=== PATIENT | female | born 1985 | race Caucasian/White ===

== ENCOUNTER 2023-05-19 19:06 | Emergency (ER) | payer OTHER, MEDICAID, SELFPAY ==
[2023-05-19 19:08] VITALS: BP 138/97; PULSE 78; RESP 16; TEMP 36.4; O2SAT 100; BMI 33.6
[2023-05-19 19:26] VITALS: BP 142/86; PULSE 73; RESP 16; O2SAT 98
[2023-05-19] MEDS: ONDANSETRON 4 MG ODT PREPACK 1 BOTTLE MISC (19:36)
--- NOTE | 2023-05-20 02:13 | ED.FALL ---
HPI - Fall General Chief Complaint: Fall Stated Complaint: Head inj from fall Time Seen by Provider: 05/19/23 19:18 Source: patient Mode of arrival: Ambulatory History of Present Illness HPI Narrative: 38-year-old female nonsmoker presents for evaluation of injury suffered as a consequence of a ground level fall just prior to arrival. She was playing with her son and tripped and fell forward striking the left side of her forehead just above her left eye. She denies any loss of consciousness and has full recall of the event. She is had no nausea or vomiting and denies any blurred vision. She denies any neck or back pain. She does not take blood thinners. She denies any chest pain or shortness of breath and has no extremity injury. She is developed the decent size hematoma above her left eye and has been icing it since. She denies blurred or double vision. Related Data Home Medications Medication Instructions Recorded Confirmed dextroamphetamine-amphetamine ER 1 cap PO DAILY 05/19/23 05/19/23 10 mg 24hr capsule,extend release (Adderall XR) fluoxetine 20 mg capsule 20 mg PO DAILY 05/19/23 05/19/23 Allergies Allergy/AdvReac Type Severity Reaction Status Date / Time No Known Drug Allergies Allergy Verified 05/19/23 19:35 Review of Systems Review of Systems Narrative: GENERAL: Denies chills, fatigue, malaise, fever, sweats. HEENT: see HPI RESPIRATORY: Denies dyspnea, cough, wheezing, hemoptysis, sputum. CARDIOVASCULAR: Denies chest pain, palpitations, orthopnea, edema, GASTROINTESTINAL: Denies nausea, vomiting, abdominal pain, diarrhea, constipation, melena. : Denies dysuria, frequency, incontinence, hematuria, urinary retention. MUSCULOSKELETAL: denies weakness, joint pain, or bony pain SKIN: Denies rash, skin lesions, or other NEUROLOGIC: Denies weakness, headache, numbness, change in speech, confusion, seizures, incoordination. PSYCHIATRIC: No concerning psychosocial issues. 12 point review of systems is negative except for those stated above Patient History Social History Smoking Status: Never smoker Smoking Status: Never smoker Substance Use Type: does not use Exam Narrative Exam Narrative: GENERAL: [38] year old patient appears stated age. Well-developed patient, in mild distress. GCS 15 HEAD: Hematoma noted above left eye with associated left upper lid swelling and some minimal involvement of lower lid. No evidence of depressed skull fracture. When hematoma is pressed to the side with finger the underlying bone is none tender EYES: Pupils equal round and reactive. Extraocular motions intact. No scleral icterus. No injection or drainage. No hyphema. Normal fundoscopic exam. ENT: Nose without bleeding, purulent drainage. Throat without erythema, tonsillar hypertrophy or exudate. Airway patent. NECK: Trachea midline. Non tender CARDIOVASCULAR: Regular rate and rhythm without murmurs, gallops, or rubs. RESPIRATORY: Clear to auscultation. Breath sounds equal bilaterally. No wheezes, rales, or rhonchi. GASTROINTESTINAL: Abdomen soft, non-tender, nondistended. EXTREMITIES: No edema or joint tenderness. BACK: Nontender without deformity or crepitance. No flank tenderness. NEURO: AOx3. SKIN: No rash or erythema of visible areas Initial Vital Signs Initial Vital Signs: Vital Signs Temperature 97.5 F L 05/19/23 19:08 Pulse Rate 78 05/19/23 19:08 Respiratory Rate 16 05/19/23 19:08 Blood Pressure 138/97 H 05/19/23 19:08 Pulse Oximetry 100 05/19/23 19:08 Oxygen Delivery Method Room Air 05/19/23 19:08 Course Orders Ordered: Discontinued Medications Ondansetron HCl (Ondansetron 4 Mg Odt Prepack) 1 bottle MIS SEEINSTR ONE Stop: 05/19/23 19:28 Last Admin: 05/19/23 19:36 Dose: 1 bottle Documented By: MALA Vital Signs Vital signs: Vital Signs - 8 hr 05/19/23 19:08 05/19/23 19:26 Temperature 97.5 F L Pulse Rate 78 73 Respiratory Rate 16 16 Blood Pressure 138/97 H 142/86 H Pulse Oximetry 100 98 Oxygen Delivery Method Room Air Room Air MDM - Fall MDM Narrative Medical decision making narrative: [38] year old patient presents with head injury after GLF Multiple etiologies for patient's symptoms considered including, but not limited to: [hematoma vs. orbital fracture vs. concussion vs. other] Prior Charts reviewed in our EMR Primary Historian: patient Patient's history and physical exam are reassuring. She has no vision change, no double vision, no abnormality with extraocular muscles. She has a normal GCS, does not take blood thinners, no indication for head CT. We did discuss the potential of facial bones or orbital bone imaging. She does have an impressive hematoma but there is low suspicion for underlying fracture. We did discuss that given her lack of vision change, normal extraocular muscle evaluation that if there were fracture it is likely clinically insignificant. After this discussion we elect not to perform imaging. She is appropriate for discharge with reassurance and given return precautions Findings and discharge diagnosis discussed with patient/family followed by verbalization of understanding Return precautions discussed with patient/family whom verbalize understanding of diagnosis and plan Discharge Plan Departure Patient Disposition: Home Clinical Impression: Traumatic hematoma of forehead Instructions: How to Prevent Falls Activity Restrictions/Additional Instructions: *You have been diagnosed with [fall with facial hematoma ] *What to do: *Please continue to take your regular medications as directed. [ ] New medication prescriptions sent to your pharmacy: [ ] [ ] New medication written as a paper prescription [ ] No new medications given *Please follow up with your primary care provider in 2-3 days, call for an appointment. Let them know you were seen in the Emergency Department and that we ask that you be seen in follow up. We will electronically transmit a record of today's note if your PCP is in our system *If you do not have a primary care provider please contact the [facility] Resource line at [phone]. They will ask some questions about your medical history and help get you set up with a doctor in the community. *Return to Emergency Department if you should have any new, worsening or concerning symptoms, such as [fever greater than 101 F, shaking chills, worsening pain, persistent vomiting or other bothersome symptoms] Prescriptions: No Action dextroamphetamine-amphetamine [Adderall XR] 10 mg capsule,extended release 24hr 1 cap PO DAILY fluoxetine 20 mg capsule 20 mg PO DAILY Stand Alone Forms: Patient Portal/API, Work Release Note
== END 2023-05-19 19:37 | disposition home or self-care (01) ==
PROVIDERS: Emergency Provider Emergency Medicine
DX: S00.83XA Contusion of other part of head, initial encounter (principal); W01.0XXA Fall on same level from slipping, tripping and stumbling without subsequent striking against object, initial encounter
CPT/HCPCS: 99282

== ENCOUNTER 2024-12-28 16:53 | Emergency (ER) | payer OTHER, SELFPAY ==
[2024-12-28 17:03] VITALS: BP 126/86; PULSE 93; RESP 16; TEMP 37.2; O2SAT 99; BMI 33.6
[2024-12-28 17:48] LABS: Strep Grp A by PCR Rapid Negative (Negative)
--- NOTE | 2024-12-28 18:19 | ED.URI ---
HPI - URI/Sore Throat <Shira Galvez PA-C - Last Filed: 12/28/24 19:23> General Chief Complaint: Upper Respiratory Symptoms Stated Complaint: sore throat, direct contract w flu strep Time Seen by Provider: 12/28/24 17:44 Source: patient Mode of arrival: Ambulatory History of Present Illness HPI Narrative: Ms. Aparicio is a pleasant 39-year-old female with no reported past medical history who presents to the emergency department for headache, sore throat x3 days. 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 She is here with her 2 children who were also checked in as patients. Reports that over the last 3 days she has had a headache which is improved but now she is having sore throat. No difficulty swallowing her own secretions. No cough, chest pain, shortness of breath, abdominal pain, nausea, vomiting, diarrhea, dysuria. No medications prior to arrival. Of note, she reports that she is taking antibiotics for an upcoming dental procedure however she does not recall what antibiotic she is on, she is on day 3. Related Data Home Medications Medication Instructions Recorded Confirmed dextroamphetamine-amphetamine ER 1 cap PO DAILY 05/19/23 05/19/23 10 mg 24hr capsule,extend release (Adderall XR) fluoxetine 20 mg capsule 20 mg PO DAILY 05/19/23 05/19/23 Previous Rx's Medication Instructions Recorded amoxicillin 500 mg capsule 500 mg PO Q12H 10 days #20 caps 12/28/24 Allergies Allergy/AdvReac Type Severity Reaction Status Date / Time No Known Drug Allergies Allergy Verified 05/19/23 19:35 Review of Systems <hSira Galvez PA-C - Last Filed: 12/28/24 19:23> Review of Systems ROS Unobtainable: All systems reviewed & are unremarkable except as noted in HPI and below Patient History <Shira Galvez PA-C - Last Filed: 12/28/24 19:23> Social History Smoking Status: Never smoker Smoking Status: Never smoker Exam <Shira Galvez PA-C - Last Filed: 12/28/24 19:23> Narrative Exam Narrative: GENERAL: 39 year old patient appears stated age. Well-developed patient, in no acute distress. HEAD: Atraumatic. Normocephalic. EYES: No scleral icterus. No injection or drainage. ENT: Nose without bleeding, purulent drainage. Throat with posterior oropharyngeal erythema and bilateral exudates on tonsils. Uvula is midline, oropharynx is widely patent, no swelling of the floor of the mouth or the submandibular region. She is tolerating her own secretions without difficulty. NECK: Trachea midline. Cervical ROM intact. CARDIOVASCULAR: Regular rate and rhythm. RESPIRATORY: ?Nonlabored respirations. ?Speaking in clear, full sentences. ?Clear to auscultation. Breath sounds equal bilaterally. No wheezes, rales, or rhonchi. ? GASTROINTESTINAL: Abdomen soft, non-tender, nondistended. EXTREMITIES: No edema or joint tenderness. NEURO: AOx3. ?Clear speech. ?Moves all 4 extremities appropriately. SKIN: No rash or erythema of visible areas Initial Vital Signs Initial Vital Signs: Vital Signs Temperature 98.9 F 12/28/24 17:03 Pulse Rate 93 H 12/28/24 17:03 Respiratory Rate 16 12/28/24 17:03 Blood Pressure 126/86 12/28/24 17:03 Pulse Oximetry 99 12/28/24 17:03 Oxygen Delivery Method Room Air 12/28/24 17:03 <Mariana Valadez DO - Last Filed: 12/28/24 21:34> Initial Vital Signs Initial Vital Signs: Vital Signs Temperature 98.9 F 12/28/24 17:03 Pulse Rate 93 H 12/28/24 17:03 Respiratory Rate 16 12/28/24 17:03 Blood Pressure 126/86 12/28/24 17:03 Pulse Oximetry 99 12/28/24 17:03 Oxygen Delivery Method Room Air 12/28/24 17:03 Course <Shira Galvez PA-C - Last Filed: 12/28/24 19:23> Orders Ordered: ED Orders 12/28/24 17:19 Strep Grp A by PCR Rapid Stat Throat Culture Stat Discontinued Medications Acetaminophen (Acetaminophen 325 Mg Tablet) 975 mg PO NOW ONE Stop: 12/28/24 18:15 Last Admin: 12/28/24 18:31 Dose: 975 mg Documented By: KELSEY Amoxicillin (Amoxicillin 250 Mg Capsule) 500 mg PO NOW ONE Stop: 12/28/24 18:15 Last Admin: 12/28/24 18:31 Dose: 500 mg Documented By: KELSEY Ibuprofen (Ibuprofen 400 Mg Tablet) 600 mg PO NOW ONE Stop: 12/28/24 18:15 Last Admin: 12/28/24 18:31 Dose: 600 mg Documented By: KELSEY Vital Signs Vital signs: Vital Signs - 8 hr 12/28/24 17:03 12/28/24 19:06 Temperature 98.9 F Pulse Rate 93 H 89 Respiratory Rate 16 17 Blood Pressure 126/86 Pulse Oximetry 99 98 Oxygen Delivery Method Room Air Room Air <Mariana Valadez DO - Last Filed: 12/28/24 21:34> Orders Ordered: ED Orders 12/28/24 17:19 Strep Grp A by PCR Rapid Stat Throat Culture Stat Discontinued Medications Acetaminophen (Acetaminophen 325 Mg Tablet) 975 mg PO NOW ONE Stop: 12/28/24 18:15 Last Admin: 12/28/24 18:31 Dose: 975 mg Documented By: KELSEY Amoxicillin (Amoxicillin 250 Mg Capsule) 500 mg PO NOW ONE Stop: 12/28/24 18:15 Last Admin: 12/28/24 18:31 Dose: 500 mg Documented By: KELSEY Ibuprofen (Ibuprofen 400 Mg Tablet) 600 mg PO NOW ONE Stop: 12/28/24 18:15 Last Admin: 12/28/24 18:31 Dose: 600 mg Documented By: KELSEY Vital Signs Vital signs: Vital Signs - 8 hr 12/28/24 17:03 12/28/24 19:06 Temperature 98.9 F Pulse Rate 93 H 89 Respiratory Rate 16 17 Blood Pressure 126/86 Pulse Oximetry 99 98 Oxygen Delivery Method Room Air Room Air MDM - URI/Sore Throat <Shira Galvez PA-C - Last Filed: 12/28/24 19:23> Medical Records Attestation: I reviewed the patient's medical records. Lab Data Labs: Lab Results 12/28/24 Range/Units 17:19 Group A Strep (PCR) Negative (Negative) MDM Narrative Medical decision making narrative: 39-year-old female with no reported past medical history who presents to the emergency department for headache, sore throat x3 days. 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 She is here with her 2 children who were also checked in as patients. Differential diagnosis includes but is not limited to viral URI, bronchitis, strep pharyngitis, viral pharyngitis, etc. On exam patient is in no acute distress, nontoxic appearing, vital signs appropriate. She is posterior oropharyngeal erythema with tonsillar exudates, no swelling. Uvula is midline oropharynx is widely patent. Rapid strep swab negative, throat culture was sent. 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 Both of her children did test positive for strep at this time, after shared decision-making with the patient we will treat empirically for strep pharyngitis given her physical exam and known contact with strep. Suspect she is likely on an amoxicillin or penicillin antibiotic for upcoming dental procedure but discussed the importance of full 10 day course of antibiotics for strep pharyngitis. She does not know what antibiotic she is on. We will treat patient with 1st dose of 500 mg amoxicillin, ibuprofen and Tylenol for pain. Discussed strict ED return precautions, possibility of secondary viral illness, follow up with primary care doctor. Advised supportive care. She verbalized understanding of all information is agreeable to the plan. She is stable for discharge home. <Mariana Valadez, - Last Filed: 12/28/24 21:34> Lab Data Labs: Lab Results 12/28/24 Range/Units 17:19 Group A Strep (PCR) Negative (Negative) Discharge Plan Departure Patient Disposition: Home Clinical Impression: Pharyngitis Qualifiers: Pharyngitis/tonsillitis etiology: unspecified etiology Qualified Code(s): J02.9 - Acute pharyngitis, unspecified Instructions: DI for Strep Throat Activity Restrictions/Additional Instructions: Thank you for coming to the emergency department today. You were evaluated for sore throat and headache, while your rapid strep test was negative both of your Children's test were positive therefore we will be treating you the same as likely having strep throat. It is very important to complete the full 10 day course of antibiotics. I advised you stop taking the antibiotic your currently on and complete this full course instead but Please call your dentist to discuss antibiotics with them as well. It is possible that you have a secondary viral illness which will not improve with antibiotics. Please rest, hydrate, drink warm tea with honey, and use ibuprofen/Tylenol for fevers and pain. Please take Ibuprofen (Motrin/Advil) or Acetaminophen (Tylenol) for pain. These are available over the counter. You may take Ibuprofen 600 mg every 8 hours with food for pain. You may also take Acetaminophen 650 mg every 4-6 hours for pain. Do not exceed 3000 mg of Tylenol a day as this can cause liver damage. Do not drink alcohol with either of these medications. Please throw away your toothbrush and start using a new, clean toothbrush after 24 hours of being on antibiotics. Please follow up with your primary care doctor within the next 2-3 days for ER follow-up. (If you do not have a PCP you can call [phone]. ?to schedule an appointment with an [facility] Primary Care Provider) IF YOU DEVELOP ANY NEW OR WORSENING SYMPTOMS, RETURN TO THE ER! Please read the attached instructions, they highlight more specific treatments and interventions for you at home. Thank you for letting me participate in your care, Shira Galvez PA-C Prescriptions: New amoxicillin 500 mg capsule 500 mg PO Q12H 10 Days Qty: 20 0RF No Action dextroamphetamine-amphetamine [Adderall XR] 10 mg capsule,extended release 24hr 1 cap PO DAILY fluoxetine 20 mg capsule 20 mg PO DAILY Referrals: Miscellaneous,Doctor, MD [Primary Care Provider] - Stand Alone Forms: Patient Portal/API/Survey ED Sign-out <Mariana Valadez DO - Last Filed: 12/28/24 21:34> Cosign ED Attending Alexandruature Attestation: I was available for consultation.
[2024-12-28] MEDS: IBUPROFEN 400 MG TABLET 600 MG PO (18:31)
[2024-12-28] MEDS: ACETAMINOPHEN 325 MG TABLET 975 MG PO (18:31)
[2024-12-28] MEDS: AMOXICILLIN 250 MG CAPSULE 500 MG PO (18:31)
--- NOTE | 2024-12-28 19:04 | PC.NURSE ---
Addendum entered by Claire Leon R.N. 12/28/24 19:06: dry throat Original Note: White spots visualized on back of throat. Mother states she has been taking antibiotics for something else. Reported strep throat and flu a exposure at work.
[2024-12-28 19:06] VITALS: PULSE 89; RESP 17; O2SAT 98
== END 2024-12-28 19:27 | disposition home or self-care (01) ==
PROVIDERS: Emergency Provider Physician Assistant
DX: J02.9 Acute pharyngitis, unspecified (principal); R51.9 Headache, unspecified; Z20.828 Contact with and (suspected) exposure to other viral communicable diseases
CPT/HCPCS: 87070; 87651; 99283